=== PATIENT | female | born 1955 | race Native Hawaiian/Other Pacific Islander ===

== ENCOUNTER 2016-06-24 08:30 | Outpatient (CLI) | payer OTHER | END 2016-06-24 19:27 | disposition home or self-care (01) | LOC: MAMMO 08:30 | DX: Z12.31 Encounter for screening mammogram for malignant neoplasm of breast (principal) | CPT/HCPCS: G0202-TC ==

== ENCOUNTER 2016-12-06 12:19 | Outpatient (CLI) | payer OTHER | END 2016-12-06 12:22 | disposition short-term general hospital (02) | LOC: AMB 12:19 | DX: M25.511 Pain in right shoulder (principal); R07.89 Other chest pain; M54.5 Low back pain; S50.811A Abrasion of right forearm, initial encounter; V49.49XA Driver injured in collision with other motor vehicles in traffic accident, initial encounter; Y92.488 Other paved roadways as the place of occurrence of the external cause | CPT/HCPCS: A0425; A0429 ==

== ENCOUNTER 2016-12-06 12:22 | Emergency (ER) | payer OTHER ==
[~2016-12-06] VITALS: Ht 152.4 cm; Wt 71.7 kg
[2016-12-06 13:35] LABS: PLATELET COUNT 288 K/uL (152-353)
[2016-12-06 13:46] LABS: POTASSIUM 3.3 mmol/L (3.6-5.2)
[2016-12-06 14:56] VITALS: BP 187/80; TEMP 98.7
== END 2016-12-06 15:03 | disposition home or self-care (01) ==
LOC: ED 12:22
PROVIDERS: Specialist
DX: S20.212A Contusion of left front wall of thorax, initial encounter (principal); S20.211A Contusion of right front wall of thorax, initial encounter; S40.011A Contusion of right shoulder, initial encounter; S50.11XA Contusion of right forearm, initial encounter; V43.52XA Car driver injured in collision with other type car in traffic accident, initial encounter
CPT/HCPCS: 36415; 80053; 82150; 82550; 82553; 83690; 84484; 85027; 93005; 96372; 99284; J2060

== ENCOUNTER 2016-12-16 18:31 | Outpatient (CLI) | payer OTHER | END 2016-12-16 19:35 | disposition home or self-care (01) | LOC: RAD 18:31 | DX: M54.2 Cervicalgia (principal); M25.512 Pain in left shoulder; R07.89 Other chest pain; M54.89 Other dorsalgia ==

== ENCOUNTER 2017-11-06 13:30 | Outpatient (CLI) | payer OTHER | END 2017-11-06 20:27 | disposition home or self-care (01) | LOC: RAD 13:30 | DX: R07.89 Other chest pain (principal) | CPT/HCPCS: 93005 ==

== ENCOUNTER 2017-11-22 21:32 | Observation (INO) | payer OTHER ==
[~2017-11-22] VITALS: Ht 152.4 cm; Wt 69.1 kg
[2017-11-22 21:37] VITALS: BP 119/73; TEMP 98.5
[2017-11-22 22:00] VITALS: BP 139/71
[2017-11-22 22:23] LABS: PLATELET COUNT 249 K/uL (152-353)
[2017-11-22 22:30] LABS: POTASSIUM 2.6 mmol/L (3.6-5.2); SODIUM 135 mmol/L (136-145)
[2017-11-22 23:00] VITALS: BP 139/68
[2017-11-22 23:45] VITALS: BP 125/66
[2017-11-23] VITALS (8 sets, daily range): BP systolic 105–129; BP diastolic 48–66; TEMP 97.4–99.1; Ht 152.4 cm; Wt 69.1 kg
--- NOTE | 2017-11-23 01:40 | NUR ---
11/23/17 0040 PT TO ROOM VIA WHEELCAHIR ORIENTED TO ROOM PT DROWSY DUE TO MEDICATION.S/O PRESENT IN ROOM.18 GAUDGE INTACT TO LEFT AC.CALL LIGHT WITHIN REACH.ASSESSMENT COMPLETED NO C/O PAIN AT THIS TIME.CC
[2017-11-23] MEDS ORDERED: DIOVAN HC1 PO (01:44)
[2017-11-23] MEDS ORDERED: METO-837 PO (01:44)
[2017-11-23] MEDS ORDERED: CLARITIN10 M1 PO (01:45)
[2017-11-23] MEDS ORDERED: RANI150T78 PO (01:45)
[2017-11-23 06:45] LABS: PLATELET COUNT 214 K/uL (152-353)
[2017-11-23 08:17] LABS: PARTIAL THROMBOPLASTIN TIME 25.1 SECONDS (24.5-33.6)
--- NOTE | 2017-11-23 09:03 | NUR ---
PATIENT WAS ADMITTED WITH CHEST PAIN, HYPOKALEMIA AND MIGRAINE DUNHAM, AND WEIGHT AT 151.5 AND IBW 100+/-10% AND KCAL NEEDS 4880-9911, PROTEIN NEEDS 45 TO 55 GRAMS AND FLUID NEEDS 5173-8401 ML PER DAY AND IS 152% IBW AND MBI AT 29.6 OVERWIGHT AN DIS ON A 2 GM NA DIET, CONTINUE POC.
[2017-11-23 21:16] LABS: POTASSIUM 2.8 mmol/L (3.6-5.2)
[2017-11-24 00:19] VITALS: BP 108/55; TEMP 98.4
[2017-11-24 04:27] VITALS: BP 105/52; TEMP 97.7
--- NOTE | 2017-11-24 07:30 | NUR ---
DR. MARQUEZ HERE AT THIS TIME TO SEE PT.
[2017-11-24 08:00] VITALS: BP 113/60; TEMP 97.8
[2017-11-24 08:19] LABS: PLATELET COUNT 192 K/uL (152-353)
[2017-11-24 08:28] LABS: POTASSIUM 3.9 mmol/L (3.6-5.2)
--- NOTE | 2017-11-24 08:30 | NUR ---
DR. MARQUEZ CALLS BACK NURSES STATION AND STATES THAT PT IS GOING TO BE TRANSFERRED TO [facility] IN [place] UNDER DR. LAWS'S CARE FOR FUTHER CARDIAC WORK UP/POSSIBLE HEART CATH. DR. DIAZ TALKS VIA PHONE TO PT AND EXPLAINS EVERYTHING (POSSIBLE PROCEDURES, REASON FOR TRANSFER, RISK, BENEFITS, ETC). PT HAS NO FUTHER QUESTIONS.
--- NOTE | 2017-11-24 08:40 | NUR ---
[facility] CALLED BACK TO DR. MARQUEZ.
--- NOTE | 2017-11-24 09:50 | NUR ---
SHIRA FROM [facility] CALLED AT THIS TIME FOR ROOM ASSIGNMENT AND NUMBER TO GIVE REPORT.
--- NOTE | 2017-11-24 10:30 | NUR ---
REPORT GIVEN TO MANI MOORE RN AT [facility]. PT GOING TO ROOM 348. PT AND PHYSICIAN SIGNED ALL D/C PAPER WORK.
--- NOTE | 2017-11-24 10:50 | NUR ---
PT LEAVING WITH EMS VIA STRETCHER AT THIS TIME. 18G IV INTACT TO LEFT FA AND NS INFUSING KVO. NO PROBLEMS NOTED.
== END 2017-11-24 11:00 | disposition short-term general hospital (02) ==
LOC: ED 21:32 → MED/SURG 23:50
PROVIDERS: Family Medicine
DX: E87.6 Hypokalemia (principal); R07.89 Other chest pain; G43.809 Other migraine, not intractable, without status migrainosus; R11.2 Nausea with vomiting, unspecified; A08.8 Other specified intestinal infections; E78.4 Other hyperlipidemia; K21.9 Gastro-esophageal reflux disease without esophagitis; I12.9 Hypertensive chronic kidney disease with stage 1 through stage 4 chronic kidney disease, or unspecified chronic kidney disease; N18.3 Chronic kidney disease, stage 3 (moderate); R73.9 Hyperglycemia, unspecified; R06.00 Dyspnea, unspecified
CPT/HCPCS: 36415; 80048; 80053; 81000; 82550; 82553; 83036; 83735; 83880; 84443; 84484; 85027; 85610; 85730; 93005; 94760; 96367; 96372; 96374; 96375; 99220; 99284; G0378; J1100; J1200; J1650; J1885; J2405; J2550; J3475

== ENCOUNTER 2017-12-20 16:06 | Outpatient (CLI) | payer OTHER ==
[~2017-12-20 16:06] MED LIST: CLARITIN10 M1 PO; DIOVAN HC1 PO; METO-837 PO; RANI150T78 PO
[2017-12-20 16:44] LABS: POTASSIUM 3.4 mmol/L (3.6-5.2)
== END 2017-12-20 19:33 | disposition home or self-care (01) ==
LOC: LABW 16:06
PROVIDERS: Internal Medicine Cardiovascular Disease
DX: Z79.899 Other long term (current) drug therapy (principal)
CPT/HCPCS: 36415; 80048

== ENCOUNTER 2018-01-12 11:20 | Observation (INO) | payer OTHER ==
[~2018-01-12] VITALS: Ht 152.4 cm; Wt 68.3 kg
[2018-01-12] VITALS (17 sets, daily range): BP systolic 112–149; BP diastolic 60–84; TEMP 97.9–98.2; Ht 152.4 cm; Wt 68.3 kg
[2018-01-12 12:53] LABS: PLATELET COUNT 299 K/uL (152-353)
[2018-01-12 13:45] LABS: POTASSIUM 3.8 mmol/L (3.6-5.2)
[2018-01-12] MEDS ORDERED: CYCL10TA35 PO (16:04)
[2018-01-12] MEDS ORDERED: BENICAR20 MG PO (16:06)
[2018-01-12] MEDS ORDERED: HYDR25TA60 PO (16:07)
[2018-01-12] MEDS ORDERED: LORA0.5T17 PO (16:08)
[2018-01-12] MEDS ORDERED: POT CHLORIDE10 MEQ PO (16:10)
[2018-01-12] MEDS ORDERED: SPIRONOLACT25 MG PO (16:11)
[2018-01-13] VITALS (14 sets, daily range): BP systolic 108–150; BP diastolic 52–90; TEMP 97.7–98
[2018-01-13 05:55] LABS: PLATELET COUNT 249 K/uL (152-353)
[2018-01-13 06:03] LABS: POTASSIUM 3.5 mmol/L (3.6-5.2)
== END 2018-01-13 13:40 | disposition home or self-care (01) ==
LOC: ICU 11:20
PROVIDERS: ADMIT Family Medicine
DX: R07.89 Other chest pain (principal); R00.2 Palpitations; R11.0 Nausea; F41.8 Other specified anxiety disorders; M54.9 Dorsalgia, unspecified; J44.9 Chronic obstructive pulmonary disease, unspecified; E78.4 Other hyperlipidemia; G62.9 Polyneuropathy, unspecified; I12.9 Hypertensive chronic kidney disease with stage 1 through stage 4 chronic kidney disease, or unspecified chronic kidney disease; N18.2 Chronic kidney disease, stage 2 (mild); R51 Headache; E83.42 Hypomagnesemia; E87.6 Hypokalemia
CPT/HCPCS: 80053; 81000; 82550; 83735; 84100; 84439; 84443; 84484; 85027; 93005; 94760; 99220; G0378; G0379; J0696; J1650; J2270; J2405; J3475; J3490

== ENCOUNTER 2019-05-25 16:04 | Emergency (ER) | payer OTHER ==
[~2019-05-25] VITALS: Ht 152.4 cm; Wt 68.0 kg
[~2019-05-25 16:04] MED LIST changes: +BENICAR20 MG PO; +CYCL10TA35 PO; +HYDR25TA60 PO; +LORA0.5T17 PO; +POT CHLORIDE10 MEQ PO; +SPIRONOLACT25 MG PO
[2019-05-25 17:30] LABS: PLATELET COUNT 277 K/uL (152-353)
[2019-05-25 17:37] LABS: POTASSIUM 3.4 mmol/L (3.6-5.2)
[2019-05-25 20:04] VITALS: BP 171/61; TEMP 98.1
== END 2019-05-25 20:04 | disposition home or self-care (01) ==
LOC: ED 16:04
PROVIDERS: Emergency Medicine
DX: M54.5 Low back pain (principal); M47.9 Spondylosis, unspecified
CPT/HCPCS: 80053; 81000; 85027; 96374; 99284; J1885

== ENCOUNTER 2019-07-01 11:20 | Outpatient (CLI) | payer OTHER | END 2019-07-01 19:15 | disposition home or self-care (01) | LOC: RAD 11:20 | DX: J02.9 Acute pharyngitis, unspecified (principal); M54.9 Dorsalgia, unspecified; H66.93 Otitis media, unspecified, bilateral; R05 Cough ==

== ENCOUNTER 2022-08-22 14:38 | Outpatient (CLI) | payer OTHER | END 2022-08-22 19:01 | disposition home or self-care (01) | LOC: RAD 14:38 | PROVIDERS: ATTEND Nurse Practitioner Family | DX: M79.675 Pain in left toe(s) (principal) ==